=== PATIENT | male | born 1970 | race Caucasian/White ===

== ENCOUNTER 2017-06-04 14:06 | Inpatient (IN) | payer MEDICAID ==
[2017-06-04] MEDS ORDERED: BISACODYL 10 MG SUPP PR (14:30)
[2017-06-04] MEDS ORDERED: BISACODYL 5 MG TAB PO (14:30)
[2017-06-04] MEDS ORDERED: FLEET ENEMA PR (14:30)
[2017-06-04] MEDS ORDERED: ONDANSETRON 4 MG TAB (S0181) PO (14:30)
[2017-06-04] MEDS ORDERED: ACETAMINOPHEN TAB 650MG DOSE (2X325MG) PO (14:45)
[2017-06-04] MEDS: traZODone 50 MG TAB PO (20:52)
[2017-06-04] MEDS: VALPROIC ACID 250 MG CAP PO (20:52)
[2017-06-04] MEDS: HALOPERIDOL 5 MG TAB PO (20:52)
[2017-06-04] MEDS: LORazepam 1 MG TAB PO (20:52)
[2017-06-04] MEDS: METOPROLOL TART 12.5 MG PER 1/2 TAB PO (20:52)
[2017-06-04] MEDS: POTASSIUM CHLORIDE 10 MEQ SR TABLET PO (20:53)
[2017-06-05 07:33] LABS: BASO # 0.1 10^3/uL (0.0-0.2); BASO % 1.1 % (0.0-1.0); EOS # 0.3 10^3/uL (0.0-0.50); HEMATOCRIT 36.4 % (42.0-52.0); HEMOGLOBIN 12.2 g/dl (13.5-17.5); IMMATURE GRANULOCYTE % 0.5 % (0-3.0); LYMPH # 2.1 10^3/uL (1.5-4.5); LYMPH % 37.5 % (24.0-44.0); MEAN CORPUSCULAR HEMOGLOBIN 31.7 pg (27.0-33.0); MEAN CORPUSCULAR HGB CONC 33.5 g/dl (32.0-36.5); MEAN CORPUSCULAR VOLUME 94.5 fl (80.0-96.0); MONO # 0.9 10^3/uL (0.0-0.8); MONO % 16.5 % (0.0-5.0); NEUTROPHILS # 2.1 10^3/uL (1.8-7.7); NEUTROPHILS % 38.4 % (36.0-66.0); PLATELET COUNT, AUTOMATED 255 10^3/uL (150-450); RED BLOOD COUNT 3.85 10^6/uL (4.30-6.10); RED CELL DISTRIBUTION WIDTH 12.9 % (11.5-14.5); WHITE BLOOD COUNT 5.5 10^3/uL (4.0-10.0)
[2017-06-05 08:13] LABS: ALBUMIN 2.9 GM/DL (3.2-5.2); ALBUMIN/GLOBULIN RATIO 0.83 (1.00-1.93); ALKALINE PHOSPHATASE 41 U/L (45-117); ALT/SGPT 32 U/L (12-78); ANION GAP 5 MEQ/L (8-16); AST/SGOT 20 U/L (7-37); BILIRUBIN,TOTAL 0.2 MG/DL (0.2-1.0); BLOOD UREA NITROGEN 7 MG/DL (7-18); CALCIUM LEVEL 8.6 MG/DL (8.5-10.1); CARBON DIOXIDE LEVEL 30 MEQ/L (21-32); CHLORIDE LEVEL 104 MEQ/L (98-107); CREATININE FOR GFR 0.65 MG/DL (0.70-1.30); GLOMERULAR FILTRATION RATE > 60.0 (>60); GLUCOSE, FASTING 93 MG/DL (70-100); POTASSIUM SERUM 4.1 MEQ/L (3.5-5.1); SODIUM LEVEL 139 MEQ/L (136-145); TOTAL PROTEIN 6.4 GM/DL (6.4-8.2)
[2017-06-05] MEDS: MIRALAX *UNIT DOSE* 17GM PACKET PO (08:15)
[2017-06-05] MEDS: LORazepam 1 MG TAB PO ×2 (08:15→20:51)
[2017-06-05] MEDS: ENOXAPARIN 40 MG/0.4 ML SYRINGE (J1650) SC (08:15)
[2017-06-05] MEDS: MULTIVITAMINS/MINERALS THERAP 1 TAB PO (08:16)
[2017-06-05] MEDS: PANTOPRAZOLE 40MG TAB (PROTONIX) PO (08:16)
[2017-06-05] MEDS: POTASSIUM CHLORIDE 10 MEQ SR TABLET PO ×2 (08:16→20:50)
[2017-06-05] MEDS: VALPROIC ACID 250 MG CAP PO ×2 (08:16→20:50)
[2017-06-05] MEDS: THIAMINE 100 MG TAB PO (08:16)
[2017-06-05] MEDS: METOPROLOL TART 12.5 MG PER 1/2 TAB PO ×2 (08:16→20:51)
[2017-06-05] MEDS: HALOPERIDOL 5 MG TAB PO ×2 (08:16→20:51)
[2017-06-05] MEDS: FOLIC ACID 1 MG TAB PO (08:16)
[2017-06-05] MEDS: traZODone 50 MG TAB PO (20:51)
[2017-06-06 06:30] LABS: HEMATOCRIT 37.8 % (42.0-52.0); HEMOGLOBIN 12.6 g/dl (13.5-17.5); MEAN CORPUSCULAR HEMOGLOBIN 31.5 pg (27.0-33.0); MEAN CORPUSCULAR HGB CONC 33.3 g/dl (32.0-36.5); MEAN CORPUSCULAR VOLUME 94.5 fl (80.0-96.0); PLATELET COUNT, AUTOMATED 243 10^3/uL (150-450); RED CELL DISTRIBUTION WIDTH 12.8 % (11.5-14.5); WHITE BLOOD COUNT 6.6 10^3/uL (4.0-10.0)
[2017-06-06 06:47] LABS: ALBUMIN 2.9 GM/DL (3.2-5.2); ALBUMIN/GLOBULIN RATIO 0.78 (1.00-1.93); ALKALINE PHOSPHATASE 38 U/L (45-117); ALT/SGPT 31 U/L (12-78); ANION GAP 4 MEQ/L (8-16); AST/SGOT 15 U/L (7-37); BILIRUBIN,TOTAL 0.2 MG/DL (0.2-1.0); BLOOD UREA NITROGEN 9 MG/DL (7-18); CALCIUM LEVEL 8.3 MG/DL (8.5-10.1); CARBON DIOXIDE LEVEL 30 MEQ/L (21-32); CHLORIDE LEVEL 106 MEQ/L (98-107); CREATININE FOR GFR 0.74 MG/DL (0.70-1.30); GLOMERULAR FILTRATION RATE > 60.0 (>60); GLUCOSE, FASTING 95 MG/DL (70-100); MAGNESIUM LEVEL 2.2 MG/DL (1.8-2.4); SODIUM LEVEL 140 MEQ/L (136-145); TOTAL PROTEIN 6.6 GM/DL (6.4-8.2)
[2017-06-06] MEDS: MIRALAX *UNIT DOSE* 17GM PACKET PO (08:41)
[2017-06-06] MEDS: METOPROLOL TART 12.5 MG PER 1/2 TAB PO ×2 (08:41→20:59)
[2017-06-06] MEDS: LORazepam 1 MG TAB PO ×2 (08:42→20:58)
[2017-06-06] MEDS: POTASSIUM CHLORIDE 10 MEQ SR TABLET PO ×2 (08:42→20:58)
[2017-06-06] MEDS: VALPROIC ACID 250 MG CAP PO ×2 (08:42→20:59)
[2017-06-06] MEDS: FOLIC ACID 1 MG TAB PO (08:42)
[2017-06-06] MEDS: PANTOPRAZOLE 40MG TAB (PROTONIX) PO (08:42)
[2017-06-06] MEDS: MULTIVITAMINS/MINERALS THERAP 1 TAB PO (08:42)
[2017-06-06] MEDS: THIAMINE 100 MG TAB PO (08:42)
[2017-06-06] MEDS: HALOPERIDOL 5 MG TAB PO ×2 (08:42→20:59)
[2017-06-06] MEDS: ENOXAPARIN 40 MG/0.4 ML SYRINGE (J1650) SC (08:43)
[2017-06-06] MEDS: traZODone 50 MG TAB PO (20:59)
[2017-06-07 06:34] LABS: HEMATOCRIT 38.1 % (42.0-52.0); HEMOGLOBIN 12.6 g/dl (13.5-17.5); MEAN CORPUSCULAR HEMOGLOBIN 31.3 pg (27.0-33.0); MEAN CORPUSCULAR HGB CONC 33.1 g/dl (32.0-36.5); MEAN CORPUSCULAR VOLUME 94.8 fl (80.0-96.0); PLATELET COUNT, AUTOMATED 237 10^3/uL (150-450); RED BLOOD COUNT 4.02 10^6/uL (4.30-6.10); WHITE BLOOD COUNT 6.1 10^3/uL (4.0-10.0)
[2017-06-07 06:56] LABS: ALBUMIN 2.9 GM/DL (3.2-5.2); ALBUMIN/GLOBULIN RATIO 0.85 (1.00-1.93); ALKALINE PHOSPHATASE 36 U/L (45-117); ALT/SGPT 28 U/L (12-78); ANION GAP 5 MEQ/L (8-16); AST/SGOT 14 U/L (7-37); BILIRUBIN,TOTAL 0.2 MG/DL (0.2-1.0); BLOOD UREA NITROGEN 7 MG/DL (7-18); CALCIUM LEVEL 8.4 MG/DL (8.5-10.1); CARBON DIOXIDE LEVEL 29 MEQ/L (21-32); CHLORIDE LEVEL 106 MEQ/L (98-107); CREATININE FOR GFR 0.75 MG/DL (0.70-1.30); GLOMERULAR FILTRATION RATE > 60.0 (>60); GLUCOSE, FASTING 106 MG/DL (70-100); MAGNESIUM LEVEL 2.1 MG/DL (1.8-2.4); POTASSIUM SERUM 4.1 MEQ/L (3.5-5.1); SODIUM LEVEL 140 MEQ/L (136-145); TOTAL PROTEIN 6.3 GM/DL (6.4-8.2)
[2017-06-07] MEDS: VALPROIC ACID 250 MG CAP PO ×2 (08:55→20:53)
[2017-06-07] MEDS: ENOXAPARIN 40 MG/0.4 ML SYRINGE (J1650) SC (08:55)
[2017-06-07] MEDS: MIRALAX *UNIT DOSE* 17GM PACKET PO (08:55)
[2017-06-07] MEDS: THIAMINE 100 MG TAB PO (08:55)
[2017-06-07] MEDS: PANTOPRAZOLE 40MG TAB (PROTONIX) PO (08:55)
[2017-06-07] MEDS: FOLIC ACID 1 MG TAB PO (08:56)
[2017-06-07] MEDS: METOPROLOL TART 12.5 MG PER 1/2 TAB PO ×2 (08:56→20:55)
[2017-06-07] MEDS: MULTIVITAMINS/MINERALS THERAP 1 TAB PO (08:56)
[2017-06-07] MEDS: LORazepam 1 MG TAB PO (08:56)
[2017-06-07] MEDS: POTASSIUM CHLORIDE 10 MEQ SR TABLET PO ×2 (08:56→20:56)
[2017-06-07] MEDS: traZODone 50 MG TAB PO (20:53)
[2017-06-07] MEDS: HALOPERIDOL 5 MG TAB PO (20:53)
[2017-06-08 06:42] LABS: HEMATOCRIT 37.3 % (42.0-52.0); HEMOGLOBIN 12.4 g/dl (13.5-17.5); MEAN CORPUSCULAR HEMOGLOBIN 31.3 pg (27.0-33.0); MEAN CORPUSCULAR HGB CONC 33.2 g/dl (32.0-36.5); MEAN CORPUSCULAR VOLUME 94.2 fl (80.0-96.0); PLATELET COUNT, AUTOMATED 218 10^3/uL (150-450); RED BLOOD COUNT 3.96 10^6/uL (4.30-6.10); RED CELL DISTRIBUTION WIDTH 12.8 % (11.5-14.5); WHITE BLOOD COUNT 7.1 10^3/uL (4.0-10.0)
[2017-06-08 07:06] LABS: ALBUMIN 2.8 GM/DL (3.2-5.2); ALBUMIN/GLOBULIN RATIO 0.76 (1.00-1.93); ALKALINE PHOSPHATASE 35 U/L (45-117); ALT/SGPT 27 U/L (12-78); ANION GAP 7 MEQ/L (8-16); AST/SGOT 14 U/L (7-37); BILIRUBIN,TOTAL 0.2 MG/DL (0.2-1.0); BLOOD UREA NITROGEN 6 MG/DL (7-18); CALCIUM LEVEL 8.4 MG/DL (8.5-10.1); CARBON DIOXIDE LEVEL 28 MEQ/L (21-32); CHLORIDE LEVEL 106 MEQ/L (98-107); CREATININE FOR GFR 0.72 MG/DL (0.70-1.30); GLOMERULAR FILTRATION RATE > 60.0 (>60); GLUCOSE, FASTING 96 MG/DL (70-100); MAGNESIUM LEVEL 1.9 MG/DL (1.8-2.4); SODIUM LEVEL 141 MEQ/L (136-145); TOTAL PROTEIN 6.5 GM/DL (6.4-8.2)
[2017-06-08] MEDS: MIRALAX *UNIT DOSE* 17GM PACKET PO (09:00)
[2017-06-08] MEDS: VALPROIC ACID 250 MG CAP PO ×2 (09:10→21:31)
[2017-06-08] MEDS: MULTIVITAMINS/MINERALS THERAP 1 TAB PO (09:11)
[2017-06-08] MEDS: FOLIC ACID 1 MG TAB PO (09:11)
[2017-06-08] MEDS: ENOXAPARIN 40 MG/0.4 ML SYRINGE (J1650) SC (09:11)
[2017-06-08] MEDS: LORazepam 1 MG TAB PO (09:11)
[2017-06-08] MEDS: PANTOPRAZOLE 40MG TAB (PROTONIX) PO (09:11)
[2017-06-08] MEDS: THIAMINE 100 MG TAB PO (09:11)
[2017-06-08] MEDS: POTASSIUM CHLORIDE 10 MEQ SR TABLET PO ×2 (09:11→21:31)
[2017-06-08] MEDS: METOPROLOL TART 12.5 MG PER 1/2 TAB PO ×2 (09:12→21:31)
[2017-06-08] MEDS: HALOPERIDOL 5 MG TAB PO (21:30)
[2017-06-08] MEDS: traZODone 50 MG TAB PO (21:30)
[2017-06-09 06:39] LABS: HEMATOCRIT 38.5 % (42.0-52.0); HEMOGLOBIN 12.7 g/dl (13.5-17.5); MEAN CORPUSCULAR HEMOGLOBIN 31.4 pg (27.0-33.0); MEAN CORPUSCULAR VOLUME 95.1 fl (80.0-96.0); PLATELET COUNT, AUTOMATED 207 10^3/uL (150-450); RED BLOOD COUNT 4.05 10^6/uL (4.30-6.10); RED CELL DISTRIBUTION WIDTH 13.1 % (11.5-14.5); WHITE BLOOD COUNT 6.4 10^3/uL (4.0-10.0)
[2017-06-09 07:04] LABS: ALBUMIN/GLOBULIN RATIO 0.83 (1.00-1.93); ALKALINE PHOSPHATASE 36 U/L (45-117); ALT/SGPT 25 U/L (12-78); ANION GAP 4 MEQ/L (8-16); AST/SGOT 11 U/L (7-37); BILIRUBIN,TOTAL 0.2 MG/DL (0.2-1.0); BLOOD UREA NITROGEN 7 MG/DL (7-18); CALCIUM LEVEL 8.5 MG/DL (8.5-10.1); CARBON DIOXIDE LEVEL 31 MEQ/L (21-32); CHLORIDE LEVEL 105 MEQ/L (98-107); CREATININE FOR GFR 0.72 MG/DL (0.70-1.30); GLOMERULAR FILTRATION RATE > 60.0 (>60); GLUCOSE, FASTING 98 MG/DL (70-100); POTASSIUM SERUM 4.1 MEQ/L (3.5-5.1); SODIUM LEVEL 140 MEQ/L (136-145); TOTAL PROTEIN 6.6 GM/DL (6.4-8.2)
[2017-06-09] MEDS: FOLIC ACID 1 MG TAB PO (08:08)
[2017-06-09] MEDS: THIAMINE 100 MG TAB PO (08:08)
[2017-06-09] MEDS: PANTOPRAZOLE 40MG TAB (PROTONIX) PO (08:08)
[2017-06-09] MEDS: MULTIVITAMINS/MINERALS THERAP 1 TAB PO (08:08)
[2017-06-09] MEDS: LORazepam 1 MG TAB PO (08:09)
[2017-06-09] MEDS: METOPROLOL TART 12.5 MG PER 1/2 TAB PO ×2 (08:09→20:27)
[2017-06-09] MEDS: VALPROIC ACID 250 MG CAP PO ×2 (08:09→20:27)
[2017-06-09] MEDS: ENOXAPARIN 40 MG/0.4 ML SYRINGE (J1650) SC (08:10)
[2017-06-09] MEDS: MIRALAX *UNIT DOSE* 17GM PACKET PO (08:10)
[2017-06-09] MEDS: POTASSIUM CHLORIDE 10 MEQ SR TABLET PO ×2 (08:10→20:28)
[2017-06-09] MEDS: HALOPERIDOL 5 MG TAB PO (20:26)
[2017-06-09] MEDS: traZODone 50 MG TAB PO (20:27)
[2017-06-10 06:53] LABS: HEMATOCRIT 41.1 % (42.0-52.0); HEMOGLOBIN 13.6 g/dl (13.5-17.5); MEAN CORPUSCULAR HEMOGLOBIN 31.4 pg (27.0-33.0); MEAN CORPUSCULAR HGB CONC 33.1 g/dl (32.0-36.5); MEAN CORPUSCULAR VOLUME 94.9 fl (80.0-96.0); PLATELET COUNT, AUTOMATED 215 10^3/uL (150-450); RED BLOOD COUNT 4.33 10^6/uL (4.30-6.10); RED CELL DISTRIBUTION WIDTH 12.9 % (11.5-14.5); WHITE BLOOD COUNT 6.9 10^3/uL (4.0-10.0)
[2017-06-10 07:26] LABS: ALBUMIN 3.2 GM/DL (3.2-5.2); ALBUMIN/GLOBULIN RATIO 0.89 (1.00-1.93); ALKALINE PHOSPHATASE 39 U/L (45-117); ALT/SGPT 25 U/L (12-78); ANION GAP 5 MEQ/L (8-16); AST/SGOT 11 U/L (7-37); BILIRUBIN,TOTAL 0.2 MG/DL (0.2-1.0); BLOOD UREA NITROGEN 6 MG/DL (7-18); CALCIUM LEVEL 8.7 MG/DL (8.5-10.1); CARBON DIOXIDE LEVEL 31 MEQ/L (21-32); CHLORIDE LEVEL 105 MEQ/L (98-107); CREATININE FOR GFR 0.66 MG/DL (0.70-1.30); GLOMERULAR FILTRATION RATE > 60.0 (>60); GLUCOSE, FASTING 91 MG/DL (70-100); POTASSIUM SERUM 4.2 MEQ/L (3.5-5.1); SODIUM LEVEL 141 MEQ/L (136-145); TOTAL PROTEIN 6.8 GM/DL (6.4-8.2)
[2017-06-10] MEDS: PANTOPRAZOLE 40MG TAB (PROTONIX) PO (07:44)
[2017-06-10] MEDS: THIAMINE 100 MG TAB PO (07:44)
[2017-06-10] MEDS: POTASSIUM CHLORIDE 10 MEQ SR TABLET PO (07:44)
[2017-06-10] MEDS: VALPROIC ACID 250 MG CAP PO (07:44)
[2017-06-10] MEDS: ENOXAPARIN 40 MG/0.4 ML SYRINGE (J1650) SC (07:44)
[2017-06-10] MEDS: FOLIC ACID 1 MG TAB PO (07:44)
[2017-06-10] MEDS: MULTIVITAMINS/MINERALS THERAP 1 TAB PO (07:45)
[2017-06-10] MEDS: MIRALAX *UNIT DOSE* 17GM PACKET PO (07:45)
[2017-06-10] MEDS: METOPROLOL TART 12.5 MG PER 1/2 TAB PO (07:45)
== END 2017-06-10 10:00 | disposition home or self-care (01) | DRG 58 ==
LOC: M PM&R 06-09 15:01
DX: G72.81 Critical illness myopathy (principal); G40.401 Other generalized epilepsy and epileptic syndromes, not intractable, with status epilepticus; I10 Essential (primary) hypertension; G62.9 Polyneuropathy, unspecified; R27.0 Ataxia, unspecified; R53.1 Weakness; R47.1 Dysarthria and anarthria; F10.20 Alcohol dependence, uncomplicated; G47.00 Insomnia, unspecified; F41.9 Anxiety disorder, unspecified; R53.81 Other malaise; Z79.899 Other long term (current) drug therapy